=== PATIENT | female | born 1995 | race Caucasian/White ===

== ENCOUNTER 2019-06-13 22:20 | Emergency (ER) | payer OTHER ==
[~2019-06-13] VITALS: Ht 175.3 cm; Wt 72.6 kg
[2019-06-13 22:22] VITALS: Ht 175.3 cm; Wt 72.6 kg
[2019-06-14 00:32] VITALS: BP 117/81
== END 2019-06-14 00:32 | disposition home or self-care (01) ==
LOC: ED 22:20
DX: J06.9 Acute upper respiratory infection, unspecified (principal); Z91.041 Radiographic dye allergy status
CPT/HCPCS: 87804; Q0092; U0002